=== PATIENT | female | born 2000 | race Caucasian/White ===

== ENCOUNTER 2019-11-28 18:56 | Emergency (ER) | payer OTHER ==
[~2019-11-28] VITALS: Ht 167.6 cm; Wt 95.3 kg
[2019-11-28] MEDS ORDERED: CAMILA0.35 MG PO (19:20)
== END 2019-11-28 21:43 | disposition home or self-care (01) ==
LOC: ER 18:56
DX: J35.01 Chronic tonsillitis (principal)

== ENCOUNTER 2020-09-12 10:20 | Emergency (ER) | payer OTHER ==
[~2020-09-12] VITALS: Ht 165.1 cm; Wt 77.1 kg
[~2020-09-12 10:20] MED LIST: CAMILA0.35 MG PO
== END 2020-09-12 16:33 ==
LOC: ER 10:20
DX: N39.0 Urinary tract infection, site not specified (principal)

== ENCOUNTER 2025-08-15 10:05 | Emergency (ER) | payer OTHER ==
[~2025-08-15] VITALS: Ht 170.2 cm; Wt 86.2 kg
[2025-08-15] MEDS ORDERED: KETOROLAC TROMETHAMINE 60 MG VIAL IM ONE (12:45)
[2025-08-15] MEDS ORDERED: METHYLPREDNISOLONE SOD SUCC 125 MG VIAL IV ONE (12:45)
[2025-08-15] MEDS ORDERED: CEFTRIAXONE SODIUM 1,000 MG VIAL IM ONE (12:45)
[2025-08-15] MEDS ORDERED: GUAIFENESIN 100 MG/5 ML BLIST.PACK PO ONE (12:45)
[2025-08-15 14:10] LABS: BASO % 0.2 % (0.1-1.2); EOS # 0.05 (0.04-0.54); EOS % 0.4 % (0.7-7.0); LYMPH # 0.79 (1.18-3.74); LYMPH % 6.3 % (19.3-53.1); MEAN PLATELET VOLUME 10.90 fl (9.4-12.4); MONO # 0.67 (0.24-0.82); MONO % 5.3 % (4.7-12.5); NEUT # 11.02 (1.56-6.13); NEUT % 87.6 % (34.0-71.1); RED CELL DISTRIBUTION WIDTH 12.6 % (11.6-14.4)
[2025-08-15 14:33] LABS: ALT/SGPT 24.0 U/L (12-78); AST/SGOT 14.0 U/L (15-37); BILIRUBIN TOTAL 0.76 mg/dL (0.3-1.2); BUN CREA RATIO 15.0 (7.0-25.0); CREATININE SERUM 0.65 mg/dL (0.55-1.02); GFR 109.34; GLOBULINA 4.3 G/DL (2.4-3.5); GLUCOSE FASTING 101.0 mg/dL (65-100); OSMOLALITY SERUM 280.0 MOSM/KG (275-295)
[2025-08-15 14:49] LABS: COVID-19 AG NEGATIVE (NEGATIVE)
[2025-08-15] MEDS ORDERED: ZITHROMAX500 MG PO (15:11)
[2025-08-15] MEDS ORDERED: PEPCID AC20 MG PO (15:11)
[2025-08-15] MEDS ORDERED: ZYRTEC10 MG PO (15:11)
== END 2025-08-15 22:01 | disposition home or self-care (01) ==
LOC: ER 10:06
DX: J06.9 Acute upper respiratory infection, unspecified (principal); R05.8 Other specified cough; Z20.822 Contact with and (suspected) exposure to COVID-19